=== PATIENT | male | born 2000 | race Caucasian/White ===

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

== ENCOUNTER 2019-08-04 08:55 | Emergency (ER) | payer SELFPAY ==
[2019-08-04 09:19] VITALS: BP 166/92
--- NOTE | 2019-08-04 09:34 | UC ---
Skin Complaint HPI - HPI Summary HPI Summary: sore on lip x 5 days located on left side of upper lip pain is 5 out 10 , getting worse over the past 2 days, noting makes it better, worse by touch , has been getting crusty and bleeding - History of Current Complaint Chief Complaint: UCSkin Time Seen by Provider: 08/04/19 09:04 Stated Complaint: ORAL COMPLAINT Hx Obtained From: Patient Onset/Duration: Gradual Onset, Lasting Days - 5, Still Present Timing: Constant Onset Severity: Moderate Current Severity: Moderate Pain Intensity: 5 Location: Discrete - left upper lip Character: Swelling, Pain, Redness, Raised, Painful Aggravating Factor(s): Touch Alleviating Factor(s): Nothing Associated Signs & Symptoms: Positive: Negative. Negative: Fever, Chills - Allergy/Home Medications Allergies/Adverse Reactions: Allergies Allergy/AdvReac Type Severity Reaction Status Date / Time Penicillins Allergy Rash Verified 08/04/19 09:10 Home Medications: Home Medications Mupirocin 2% CREAM* [Bactroban 2% CREAM*] 1 applic TOPICAL BID #1 tube 08/04/19 [Rx] PMH/Surg Hx/FS Hx/Imm Hx Previously Healthy: Yes - Surgical History Surgical History: None - Family History Known Family History: Positive: Hypertension Negative: Cardiac Disease, Diabetes - Social History Alcohol Use: None Substance Use Type: None Smoking Status (MU): Never Smoked Tobacco - Immunization History Vaccination Up to Date: Yes Review of Systems All Other Systems Reviewed And Are Negative: Yes Is Patient Immunocompromised?: No Physical Exam Triage Information Reviewed: Yes Appearance: Well-Appearing, No Pain Distress, Well-Nourished Vital Signs: Initial Vital Signs Temp 97.1 F 08/04/19 09:10 Pulse 93 08/04/19 09:10 Resp 16 08/04/19 09:10 BP 166/92 08/04/19 09:10 Pulse Ox 97 08/04/19 09:10 Vital Signs Reviewed: Yes Eye Exam: Normal Eyes: Positive: Conjunctiva Clear ENT: Positive: Normal ENT inspection, Hearing grossly normal, Pharynx normal Neck exam: Normal Neck: Positive: Supple, Nontender, No Lymphadenopathy Respiratory: Positive: Chest non-tender, Lungs clear, Normal breath sounds Cardiovascular: Positive: RRR, No Murmur, Pulses Normal Skin: Positive: Other - crusty lesion left upper lip with multiple visicular lesion , tender to touch Course/Dx - Diagnoses Provider Diagnosis: Impetigo, Cold sore Discharge ED - Sign-Out/Discharge Documenting (check all that apply): Patient Departure All imaging exams completed and their final reports reviewed: No Studies - Discharge Plan Condition: Stable Disposition: HOME Prescriptions: Mupirocin 2% CREAM* [Bactroban 2% CREAM*] 1 applic TOPICAL BID #1 tube Patient Education Materials: Impetigo (ED) Forms: *Work Release Referrals: No Primary Care Phys,NOPCP [Primary Care Provider] - If Needed - Billing Disposition and Condition Condition: STABLE Disposition: Home
== END 2019-08-04 09:29 | disposition home or self-care (01) ==
LOC: UCCORT 08:55
DX: L01.00 Impetigo, unspecified (principal); B00.1 Herpesviral vesicular dermatitis; Z88.0 Allergy status to penicillin
CPT/HCPCS: 99212; G0463